=== PATIENT | female | born 1990 | race Caucasian/White ===

== ENCOUNTER 2016-07-09 22:40 | Emergency (ER) | payer SELFPAY ==
--- NOTE | ~2016-07-09 | ER ---
PATIENT'S NAME: TANIA WINKLER [facility] AGE: 25 Y [address] ROOM: [place] [address] LOCATION: [facility] ADMIT DATE: 07/09/2016 ER/Outpatient Report DISCHARGE DATE: 07/09/2016 FAMILY PHYSICIAN: PHYSICIAN, NO ATTENDING PHYSICIAN: Júnior Burks Admission date and time are documented on the medical record. I saw the patient at 2255 hours. CHIEF COMPLAINT: Occipital headache. HISTORY OF PRESENT ILLNESS: This patient is a 25-year-old female who has had an occipital headache over the past 4 days. It seemed to get worse tonight. Does have a history of headaches. Normal headaches are usually frontooccipital. This headache is primarily occipital. No fall or trauma. No eyes, ears, nose, throat, neck, or spine pain. No chest pain or shortness of breath. No abdominal pain. No nausea, vomiting, diarrhea, or urinary symptoms. No joint or muscle swelling, redness, or pain. No skin eruptions or rash. Does have a history of seizure disorder and migraine headaches. No CVA or TIA. No psych issues. No endocrine problems. No recent colds, coughs, flus, fever, chills, or sweats. No lightheadedness, dizziness, syncope, or near syncope. HOME MEDICATIONS: None. ALLERGIES: REGLAN, CARAFATE, ALL SEIZURE MEDICATIONS. SOCIAL HISTORY: Nonsmoker, occasional intake of alcohol. SIGNIFICANT PAST MEDICAL HISTORY: Seizure disorder, headaches, and lumbar disk disease. OPERATIONS: Right knee surgery, right elbow surgery, and cholecystectomy. REVIEW OF SYSTEMS: All systems reviewed by me are negative with the exception of those discussed in the history of present illness. PHYSICAL EXAMINATION: VITAL SIGNS: Temperature 97.2, tympanic, pulse 64, regular, respirations 16, PATIENT'S NAME: TANIA WINKLER [facility] AGE: 25 Y [address] ROOM: [place] [address] LOCATION: [facility] ADMIT DATE: 07/09/2016 ER/Outpatient Report DISCHARGE DATE: 07/09/2016 FAMILY PHYSICIAN: PHYSICIAN, NO ATTENDING PHYSICIAN: Júnior Burks blood pressure 102/69, and O2 sat on room air is 98%. Torie Coma Scale was 15. HEAD: Normocephalic. No abrasion, contusion, laceration, or swelling of the scalp or face. EYES: Extraocular muscles intact. PERRL. Sclerae and conjunctivae clear, nonicteric. EARS, NOSE, THROAT: Clear. Mucous membranes moist. Teeth, jaw intact. NECK: No nuchal rigidity. No thyromegaly or cervical adenopathy. Full range of motion. SPINE: Negative. No pain on palpation. No step-off. LUNGS: Clear. No rales, rhonchi, or wheezes. HEART: Regular. Pulses are palpable. ABDOMEN: Soft, nondistended, nontender. Good bowel tones. No organomegaly or abnormal masses palpable. No CVA tenderness. PELVIS: Stable, nontender. EXTREMITIES: No peripheral edema, cyanosis, or deformity. NEUROVASCULAR: Intact. SKIN: Clear. No skin eruptions or rash. IMPRESSION: Headache. PLAN: The patient was given Toradol 60 mg, Phenergan 50 mg, and Nubain 5 mg IM in the emergency room. Dismissed home. Observation. Activity as tolerated. Rest. Fluids and diet as tolerated. Follow up with personal physician as needed. Discussion ensued with the patient concerning my findings and recommendations, she understands. MD PIEDAD CHRISTINE/modl /[id number] d: 07/10/16 0056 t: 07/10/16 1811, OUTPATIENT REPORT
[~2016-07-09 22:40] MED LIST: DERMOPLAST SPRA56 GM TOP; FEOSOL325 MG PO; MOTRIN800 MG PO; NORCO 5-325 MG1 TAB PO; PRENATAL 1+1)(P1 TAB PO; TUMS200 MG PO; ZOFRAN4 MG PO
== END 2016-07-09 23:31 | disposition disaster alternative care site (69) ==
LOC: GMED 22:40
DX: R51 Headache (principal); G40.909 Epilepsy, unspecified, not intractable, without status epilepticus; Z88.8 Allergy status to other drugs, medicaments and biological substances; Z90.49 Acquired absence of other specified parts of digestive tract; Z98.890 Other specified postprocedural states
CPT/HCPCS: J1885; J2300; J2550

== ENCOUNTER 2016-07-19 01:06 | Emergency (ER) | payer SELFPAY ==
--- NOTE | ~2016-07-19 | ER ---
PATIENT'S NAME: TANIA WINKLER [facility] AGE: 25 Y [address] ROOM: [place] [address] LOCATION: [facility] ADMIT DATE: 07/19/2016 ER/Outpatient Report DISCHARGE DATE: 07/19/2016 FAMILY PHYSICIAN: PHYSICIAN, NO ATTENDING PHYSICIAN: Bhupendra Stevenson CHIEF COMPLAINT: Headache with nausea and vomiting. HISTORY OF PRESENT ILLNESS: The patient states that she has had a headache, which developed over the course of 3 hours and peaked last night around 8 to 9 o'clock. Since then, she has had several episodes of vomiting. She is miserable, can not sleep, and that is why she came in. She has had similar symptoms to this in the past. She has never had anything quite as aggressive as this, but this constellation of symptoms is not unusual to her. She denies any other acute issues at this time. She states that her mother is giving her transportation tonight. She is otherwise doing okay. She has no other complaints. PAST MEDICAL HISTORY: Documented on the record and reviewed by me. SOCIAL HISTORY: Documented on the record and reviewed by me. MEDICATIONS: Documented on the record and reviewed by me. ALLERGIES: DOCUMENTED ON THE RECORD AND REVIEWED BY ME. REVIEW OF SYSTEMS: All systems were reviewed and negative except as noted in the HPI. PHYSICAL EXAMINATION: VITAL SIGNS: Blood pressure 113/58, pulse is 87, respiratory rate is 18, temperature 97.7, SpO2 is 97% on room air. Pain is rated 8/10. GENERAL: An age appropriate female, in obvious discomfort, no acute distress, resting comfortably on the exam table. NEUROLOGIC: Awake and alert. GCS is 15. No focal deficits or asymmetry. HEENT: Normocephalic, atraumatic. Eyes are PERRL. Extraocular movements are intact. The oral mucosa is moist and pink. NECK: Supple. Trachea is midline. CHEST: Heart is regular rate and rhythm. No murmurs. LUNGS: Clear to auscultation bilaterally with no rhonchi, wheezes, or rales. PATIENT'S NAME: TANIA WINKLER [facility] AGE: 25 Y [address] ROOM: [place] [address] LOCATION: [facility] ADMIT DATE: 07/19/2016 ER/Outpatient Report DISCHARGE DATE: 07/19/2016 FAMILY PHYSICIAN: PHYSICIAN, NO ATTENDING PHYSICIAN: Bhupendra Stevenson ABDOMEN: Soft, minimally tender in the epigastrium. No rebound, masses, or guarding. EXTREMITIES: Warm and well perfused. SKIN: Skin is notable for an unusual red color of the hands and scalp, that matches her hair color. No other acute issues. LABORATORY DATA AND X-RAYS: Urine HCG is negative. IMPRESSION: Migraine with nausea and vomiting. EMERGENCY DEPARTMENT COURSE: The patient was seen and evaluated as above. She was given IV Compazine, Benadryl, and fluids. She had near complete resolution of all of her symptoms. She will be discharged home in good condition. Follow up with PCP as needed. Return if worse. No cause for head CT at this time as it is not a thunderclap style headache. The presentation is not consistent with meningitis. All questions were answered, and the patient was discharged in good condition. MD HONG VILLANUEVA/alejandro /[id number] d: 07/19/16 0340 t: 07/31/16 0824, OUTPATIENT REPORT
== END 2016-07-19 02:05 | disposition disaster alternative care site (69) ==
LOC: GMED 01:06
DX: G43.909 Migraine, unspecified, not intractable, without status migrainosus (principal); Z88.8 Allergy status to other drugs, medicaments and biological substances
CPT/HCPCS: J0780; J1200; J7030

== ENCOUNTER 2016-08-01 22:43 | Emergency (ER) | payer SELFPAY ==
--- NOTE | ~2016-08-01 | ER ---
PATIENT'S NAME: TANIA WINKLER [facility] AGE: 25 Y [address] ROOM: [place] [address] LOCATION: [facility] ADMIT DATE: 08/01/2016 ER/Outpatient Report DISCHARGE DATE: 08/01/2016 FAMILY PHYSICIAN: Doreen Myers Net Software Engineer ATTENDING PHYSICIAN: Júnior Burks Time of Arrival: 2258 hours. Time of Evaluation: 2258 hours. CHIEF COMPLAINT: Back pain. HISTORY OF PRESENT ILLNESS: The patient states she has had some generalized back pain off and on today, became much more severe in the last 2 hours. Denies any recent injury to her back. States she was playing with her kids. States her period did start today. She took some ibuprofen and Midol about 7 hours ago for the menstrual cramping, but has not had any relief of her back discomfort from that. She states approximately 4 or 5 years ago she was diagnosed with a bulging disc of her back and saw a provider at [facility] at that time. ALLERGIES: Reglan and Carafate. MEDICATIONS: just [id number] ibuprofen and Midol. She states she does have a seizure disorder, but is not able to take any medications for it. 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 She states her last seizure was probably 6 months ago. PAST MEDICAL HISTORY: Seizures, bulging disc of the back. PAST SURGERIES: Cholecystectomy, right knee surgery, right elbow surgery. Currently on her menstrual cycle, last bowel movement was today. States she is urinating without any trouble. SOCIAL HISTORY: Denies use of tobacco, drugs, or alcohol. REVIEW OF SYSTEMS: All negative other than those mentioned in the HPI. PHYSICAL EXAMINATION: VITAL SIGNS: She weighs 62.4 kg. Blood pressure is 117/73, pulse of 83, respirations 20, temperature of 97.2, O2 saturations 93% on room air. PATIENT'S NAME: TANIA WINKLER [facility] AGE: 25 Y [address] ROOM: [place] [address] LOCATION: [facility] ADMIT DATE: 08/01/2016 ER/Outpatient Report DISCHARGE DATE: 08/01/2016 FAMILY PHYSICIAN: Doreen Myers Net Software Engineer ATTENDING PHYSICIAN: Júnior Burks GENERAL: She is awake, alert, and oriented x4. SKIN: [place], warm, and dry. RESPIRATIONS: Even and nonlabored. Lung sounds are clear throughout. HEART: Regular rate and rhythm. BACK: She is tender to palpate along the lumbar spinal process, especially the paraspinals of the right side. She does walk with a slow steady gait. The patient was given Toradol 60 mg IM. IMPRESSION: Back pain. PLAN: Home, rest, ice or heat to the area. Prescription was written for [place] to take as needed for discomfort. She is to follow up with her primary provider or the provider at [facility], whom she has seen in the past for her back in the next 2-3 days. She verbalized understanding. ROCKY IRVING APRN FOR MD REJI CHRISTINE/aljeandro /[id number] d: 08/02/16 0217 t: 08/02/16 1825, OUTPATIENT REPORT
== END 2016-08-01 23:36 | disposition disaster alternative care site (69) ==
LOC: GMED 22:43
DX: M54.5 Low back pain (principal); Z90.49 Acquired absence of other specified parts of digestive tract
CPT/HCPCS: J1885

== ENCOUNTER → 2016-09-19 | Outpatient (CLI) | payer SELFPAY | END | disposition disaster alternative care site (69) | LOC: GAMB 22:36 | DX: R53.1 Weakness (principal); G40.909 Epilepsy, unspecified, not intractable, without status epilepticus; E11.9 Type 2 diabetes mellitus without complications; Z79.82 Long term (current) use of aspirin; Z79.899 Other long term (current) drug therapy; Z88.8 Allergy status to other drugs, medicaments and biological substances; Z91.040 Latex allergy status | CPT/HCPCS: A0425; A0429 ==